=== PATIENT | male | born 1970 | race Two or more races ===

== ENCOUNTER 2019-01-04 19:57 | Emergency (ER) | payer BC, OTHER ==
[~2019-01-04] VITALS: Ht 162.6 cm; Wt 93.4 kg
[2019-01-04 20:45] VITALS: BP 141/99
[2019-01-04] MEDS ORDERED: LIDOCAINE 1% HCL (LOCAL ANESTH.) INJ 20ML MDV IJ ONE (23:30)
== END 2019-01-05 00:16 | disposition home or self-care (01) ==
LOC: ER 20:03
DX: S61.512A Laceration without foreign body of left wrist, initial encounter (principal); W25.XXXA Contact with sharp glass, initial encounter; Y93.89 Activity, other specified; Y92.89 Other specified places as the place of occurrence of the external cause; Y99.8 Other external cause status
CPT/HCPCS: 12002; 99284; J2001